=== PATIENT | female | born 1980 | race American Indian/Alaskan Native ===

== ENCOUNTER 2017-05-23 20:58 | Emergency (ER) | payer BC ==
[2017-05-23 21:04] VITALS: BP 145/82; PULSE 77; RESP 18; TEMP 97.9; O2SAT 98
--- NOTE | 2017-05-23 21:40 | ED PDOC ---
HPI: Allergic Reaction Time Seen by Provider: 05/23/17 21:04 Chief Complaint (Nursing): Allergic Reaction Chief Complaint (Provider): Allergic Reaction History Per: Patient History/Exam Limitations: no limitations Current Symptoms Are (Timing): Still Present Possible Cause: Medication Associated Symptoms: Skin Rash, Swelling, Itching. denies: Trouble Swallowing, Dizziness, Redness Additional Complaint(s): Elisabet Dempsey, a 36 year old female, presents to the ED to be evaluated. The patient states that around 5:15 she took some tylenol and then around 8:15 she began to develop itching and burning to the bilateral upper extremities. Patient also notes some swelling and tingling sensation to the lips. Denies difficulty breathing, swelling around hand and eyes, numbness/tingling to arms, dizziness. Past Medical History Reviewed: Historical Data, Nursing Documentation, Vital Signs Vital Signs: Last Vital Signs Temp 97.9 F 05/23/17 21:01 Pulse 77 05/23/17 21:01 Resp 18 05/23/17 21:01 BP 145/82 05/23/17 21:01 Pulse Ox 98 05/23/17 21:01 - Medical History PMH: No Chronic Diseases - Surgical History Surgical History: No Surg Hx - Family History Family History: States: Unknown Family Hx - Living Arrangements Living Arrangements: With Family - Social History Current smoker - smoking cessation education provided: No Alcohol: None Drugs: Denies - Home Medications Home Medications: Ambulatory Orders Medication Instructions Recorded Ibuprofen [Motrin] 600 mg PO Q6H PRN #20 tab 07/19/14 DiphenhydrAMINE [Benadryl] 25 mg PO Q6 #15 cap 05/23/17 Famotidine [Pepcid] 20 mg PO BID #16 tab 05/23/17 predniSONE [predniSONE Tab] 20 mg PO BID #8 tab 05/23/17 - Allergies Allergies/Adverse Reactions: Allergies Allergy/AdvReac Type Severity Reaction Status Date / Time metoclopramide [From Reglan] Allergy RASH Verified 05/23/17 21:01 Review of Systems ENT: Positive for: Other (swelling nad tingling around lips) Musculoskeletal: Positive for: Other (burning and itching to b/l upper extremities.) Physical Exam - Reviewed Nursing Documentation Reviewed: Yes Vital Signs Reviewed: Yes - Physical Exam Appears: Positive for: Non-toxic, No Acute Distress Head Exam: Positive for: ATRAUMATIC, NORMAL INSPECTION, NORMOCEPHALIC Skin: Positive for: Normal Color, Warm, Dry. Negative for: Rash Eye Exam: Positive for: Normal appearance, EOMI, PERRL. Negative for: Nystagmus ENT: Positive for: Normal ENT Inspection. Negative for: Nasal Congestion, Tonsillar Exudate Neck: Positive for: Normal, Painless ROM, Supple Cardiovascular/Chest: Positive for: Regular Rate, Rhythm, Chest Non Tender. Negative for: Tachycardia Respiratory: Positive for: Normal Breath Sounds. Negative for: Rales, Rhonchi, Wheezing, Respiratory Distress Gastrointestinal/Abdominal: Positive for: Normal Exam, Bowel Sounds, Soft. Negative for: Tenderness, Guarding, Rebound Back: Positive for: Normal Inspection. Negative for: L CVA Tenderness, R CVA Tenderness Extremity: Positive for: Normal ROM. Negative for: Tenderness, Deformity, Swelling Neurologic/Psych: Positive for: Alert, Oriented, Gait - ECG O2 Sat by Pulse Oximetry: 98 (RA) Pulse Ox Interpretation: Normal - Progress ED Course And Treament: 210 Initial Impression: 36 y/o female presenting with allergic reaction Initial Plan: * Benadryl 25mg PO * Pepcid 20mg PO * predniSONE Tab 60mg PO * Reevaluation 2030 Patient most likely had an allergic reaction to tylenol and and advised to refrain from using tylenol. Scribe Attestation Documented by Laine Lange acting as a scribe for Deirdre Soares PA-C. MD Scribe Attestation All medical record entries made by the Scribe were at my direction and personally dictated by me. I have reviewed the chart and agree that the record accurately reflects my personal performance of the history, physical exam, medical decision making, and the department course for this patient. I have also personally directed, reviewed, and agree with the discharge instructions and disposition. Disposition - Clinical Impression Clinical Impression: Allergic reaction Counseled Patient/Family Regarding: Studies Performed, Diagnosis - Disposition Referrals: [facility] [Provider Group] [facility] [Outside] Disposition: Routine/Home Disposition Time: 21:43 Condition: STABLE Prescriptions: DiphenhydrAMINE [Benadryl] 25 mg PO Q6 #15 cap Famotidine [Pepcid] 20 mg PO BID #16 tab predniSONE [predniSONE Tab] 20 mg PO BID #8 tab Instructions: General Allergic Reaction (ED) Forms: [facility] (New Zealander), [facility] ED School/Work Excuse - POA Present On Arrival: None
== END 2017-05-23 21:40 | disposition home or self-care (01) ==
LOC: H.ER 20:58
DX: T78.40XA Allergy, unspecified, initial encounter (principal); X58.XXXA Exposure to other specified factors, initial encounter

== ENCOUNTER 2017-06-09 20:16 | Emergency (ER) | payer BC ==
[2017-06-09 20:30] VITALS: BP 143/90; PULSE 84; RESP 18; TEMP 98; O2SAT 100
[2017-06-09] MEDS ORDERED: Dexamethasone 4 MG in Sodium Chloride 0.9% 50 ML IV ONE (21:08)
--- NOTE | 2017-06-09 21:13 | ED PDOC ---
HPI: Headache Time Seen by Provider: 06/09/17 20:44 Chief Complaint (Nursing): Headache Chief Complaint (Provider): Headache History Per: Patient History/Exam Limitations: no limitations Onset/Duration Of Symptoms: Hrs (x5) Current Symptoms Are (Timing): Better Additional Complaint(s): Elisabet Dempsey is a 36 year old female with previous medical history of gastritis, who presents to the emergency department with a complaint of constant frontal, pressure headaches status post concussion on right side of head 1 month ago at work associated with facial pain, pressure behind eyes, shortness of breath and near syncope ongoing for 5 hours prior to arrival. Denied vomiting, dizziness, chest pain or palpations. Patient stated she has been taking Motrin once daily for relief and went to urgent care today which recommended neurology consult. Of note, patient had CT scan done with negative findings and reported shortness of breath has since resolved upon arrival to ED. PMD: none provided Past Medical History Reviewed: Historical Data, Nursing Documentation, Vital Signs Vital Signs: Last Vital Signs Temp 98 F 06/09/17 20:27 Pulse 84 06/09/17 20:27 Resp 18 06/09/17 20:27 BP 143/90 06/09/17 20:27 Pulse Ox 100 06/09/17 20:27 - Medical History PMH: Gastritis Denies: Chronic Kidney Disease - Surgical History Surgical History: No Surg Hx - Family History Family History: States: Unknown Family Hx - Social History Current smoker - smoking cessation education provided: No Alcohol: None Drugs: Denies - Home Medications Home Medications: Ambulatory Orders Medication Instructions Recorded Ibuprofen [Motrin] 600 mg PO Q6H PRN #20 tab 07/19/14 DiphenhydrAMINE [Benadryl] 25 mg PO Q6 #15 cap 05/23/17 Famotidine [Pepcid] 20 mg PO BID #16 tab 05/23/17 predniSONE [predniSONE Tab] 20 mg PO BID #8 tab 05/23/17 Acetaminophen/Butalbital/Caf 1 tab PO TID PRN #15 tab 06/10/17 [Fioricet] - Allergies Allergies/Adverse Reactions: Allergies Allergy/AdvReac Type Severity Reaction Status Date / Time metoclopramide [From Reglan] Allergy RASH Verified 06/09/17 21:41 Review of Systems ROS Statement: Except As Marked, All Systems Reviewed And Found Negative Cardiovascular: Negative for: Chest Pain, Palpitations Respiratory: Positive for: Shortness of Breath Gastrointestinal: Negative for: Vomiting Neurological: Positive for: Headache (front; facial pain), Other (near syncope) . Negative for: Dizziness Physical Exam - Reviewed Nursing Documentation Reviewed: Yes Vital Signs Reviewed: Yes - Physical Exam Appears: Positive for: Well, Non-toxic, No Acute Distress Head Exam: Positive for: ATRAUMATIC, NORMAL INSPECTION, NORMOCEPHALIC Skin: Positive for: Normal Color Eye Exam: Positive for: Normal appearance, EOMI, PERRL. Negative for: Nystagmus ENT: Positive for: Normal ENT Inspection Neck: Positive for: Normal Cardiovascular/Chest: Positive for: Regular Rate, Rhythm, Chest Non Tender Respiratory: Positive for: Normal Breath Sounds, Accessory Muscle Use. Negative for: Decreased Breath Sounds, Respiratory Distress Gastrointestinal/Abdominal: Positive for: Normal Exam Extremity: Positive for: Normal ROM Neurologic/Psych: Positive for: Alert (x3), Oriented - Laboratory Results Result Diagrams: 06/09/17 21:48 06/09/17 21:48 - ECG O2 Sat by Pulse Oximetry: 100 (RA) Pulse Ox Interpretation: Normal Medical Decision Making Medical Decision Making: Initial Impression: Headache Differential Diagnosis: Migraine; neuralgia; concussion syndrome Initial Plan: * EKG * BMP * Troponin I * Urine * Urine dipstick * CBC * Decadrib inj 4mg IVP * Toradol 15mg IVP Time: 2154 --EKG: NSR at 77 BMP. Normal QRS. No ST changes. Scribe Attestation: Documented by Bridgette Sierra, acting as a scribe for Scott Levy MD. Provider Scribe Attestation: All medical record entries made by the Scribe were at my direction and personally dictated by me. I have reviewed the chart and agree that the record accurately reflects my personal performance of the history, physical exam, medical decision making, and the department course for this patient. I have also personally directed, reviewed, and agree with the discharge instructions and disposition. Disposition - Clinical Impression Clinical Impression: Headache, Postconcussion syndrome, Dyspnea - Patient ED Disposition Is Patient to be Admitted: No Doctor Will See Patient In The: Office Counseled Patient/Family Regarding: Studies Performed, Diagnosis, Need For Followup - Disposition Referrals: Ajay Jarrett MD [Staff Provider] - Disposition: Routine/Home Disposition Time: 01:10 Condition: GOOD Additional Instructions: Take your medications as instructed. Follow up with neurologist in 2-3 days. Prescriptions: Acetaminophen/Butalbital/Caf [Fioricet] 1 tab PO TID PRN #15 tab PRN Reason: Headache Instructions: Post Concussion Syndrome (ED), General Headache (ED) Forms: [facility] (Palestinian)
[2017-06-09] MEDS ORDERED: Dexamethasone 4 mg/1 ml IVP ONE (21:15)
[2017-06-09] MEDS ORDERED: Dexamethasone 4 mg/1 ml ONE (21:30)
[2017-06-09 21:58] LABS: BASO % 0.5 % (0.0-2.0); EOS % 0.5 % (0.0-4.0); HEMATOCRIT 39.1 % (34.0-47.0); LYMPH # 1.5 K/uL (1.0-4.3); LYMPH % 18.8 % (20.0-40.0); MEAN CORPUSCULAR HEMOGLOBIN 25.9 pg (27.0-31.0); MEAN CORPUSCULAR HGB CONC 31.6 g/dL (33.0-37.0); MEAN PLATELET VOLUME 9.1 fl (7.2-11.7); MONO # 0.6 K/uL (0.0-0.8); MONO % 7.9 % (0.0-10.0); NEUT # 5.7 K/uL (1.8-7.0); NEUT % 72.3 % (50.0-75.0); RED CELL DISTRIBUTION WIDTH 14.9 % (11.5-14.5); WHITE BLOOD COUNT 7.9 K/uL (4.8-10.8)
[2017-06-09 22:05] LABS: BLOOD UREA NITROGEN 16 mg/dl (7-17); CALCIUM 9.9 mg/dL (8.4-10.2); CARBON DIOXIDE 23 mmol/L (22-30); CHLORIDE 106 mmol/L (98-107); GFR AFRICAN-AMERICAN > 60; GLUCOSE,RANDOM 98 mg/dL (65-105); POTASSIUM 4.2 MMOL/L (3.6-5.0); SODIUM 140 mmol/l (132-148)
[2017-06-09] MEDS ORDERED: Oxycodone/Acetaminophen 5/325 mg Tab PO ONE (23:44)
[2017-06-09] MEDS ORDERED: Oxycodone/Acetaminophen 5/325 mg Tab ONE (23:47)
--- NOTE | 2017-06-10 07:31 | CARD ---
APPROVED REPORT EKG Measurement Heart [id number] <Conclusion> Normal sinus rhythm with sinus arrhythmia Normal ECG
== END 2017-06-10 01:48 | disposition home or self-care (01) ==
LOC: H.ER 20:16
DX: F07.81 Postconcussional syndrome (principal)
CPT/HCPCS: 80048; 81025; 84484; 85025; 93005; 96374; 96375; 99283; J1100; J1885

== ENCOUNTER 2018-09-24 20:46 | Emergency (ER) | payer BC ==
[2018-09-24 21:10] VITALS: RESP 18; TEMP 98.7
[2018-09-24 22:56] VITALS: O2SAT 100
--- NOTE | 2018-09-24 23:10 | ED PDOC ---
HPI: Abdomen Time Seen by Provider: 09/24/18 22:15 Chief Complaint (Nursing): Female Genitourinary Chief Complaint (Provider): Abdominal Pain History Per: Patient History/Exam Limitations: no limitations Onset/Duration Of Symptoms: Mins Current Symptoms Are (Timing): Still Present Additional Complaint(s): 37 y/o female with a PMHx of with one miscarriage presents to the ED for evaluation of abdominal pain, onset prior to arrival. Patient reports she is 10 weeks . Patient states she was getting out of the car and turned around when she accidentally walked into a bike rack, hitting her abdomen. Patient reports of experiencing pressure-like pain at her pelvis radiating down since. Patent states has been otherwise uneventful. Patient denies vaginal discharge, vaginal bleeding, urinary symptoms, excessive vomiting and history of UTIs throughout . PMD: Umu Bowers : 2 Para: 0 Miscarriage: 1 Past Medical History Reviewed: Historical Data, Nursing Documentation, Vital Signs Vital Signs: Last Vital Signs Temp 98.7 F 09/24/18 21:08 Pulse 76 09/24/18 21:08 Resp 18 09/24/18 21:08 BP 119/72 09/24/18 21:08 Pulse Ox 100 09/24/18 21:08 - Medical History PMH: Gastritis Denies: Chronic Kidney Disease - Surgical History Surgical History: No Surg Hx - Family History Family History: States: Other Other Family History: Cancer - Social History Current smoker - smoking cessation education provided: No - Immunization History Hx Tetanus Toxoid Vaccination: No Hx Influenza Vaccination: No Hx Pneumococcal Vaccination: No - Home Medications Home Medications: Ambulatory Orders Medication Instructions Recorded Ibuprofen [Motrin] 600 mg PO Q6H PRN #20 tab 07/19/14 DiphenhydrAMINE [Benadryl] 25 mg PO Q6 #15 cap 05/23/17 Famotidine [Pepcid] 20 mg PO BID #16 tab 05/23/17 predniSONE [predniSONE Tab] 20 mg PO BID #8 tab 05/23/17 Acetaminophen/Butalbital/Caf 1 tab PO TID PRN #15 tab 06/10/17 [Fioricet] - Allergies Allergies/Adverse Reactions: Allergies Allergy/AdvReac Type Severity Reaction Status Date / Time metoclopramide [From Reglan] Allergy RASH Verified 09/24/18 21:08 Review of Systems ROS Statement: Except As Marked, All Systems Reviewed And Found Negative (as per HPI) Gastrointestinal: Positive for: Abdominal Pain Genitourinary Female: Positive for: Pelvic Pain. Negative for: Dysuria, Frequency, Hematuria, Vaginal Discharge, Vaginal Bleeding Physical Exam - Reviewed Nursing Documentation Reviewed: Yes Vital Signs Reviewed: Yes - Physical Exam Appears: Positive for: No Acute Distress Gastrointestinal/Abdominal: Positive for: Tenderness (Suprapubic tenderness to palpation. (-) McBurney's Point Tenderness, (-) Elizabeth's Sign ). Negative for: Mass, Guarding, Rebound - ECG O2 Sat by Pulse Oximetry: 100 (RA) Pulse Ox Interpretation: Normal Medical Decision Making Medical Decision Making: Time: 2219 Impression: Traumatic abdominal pain in early Plan: -- ED Urine -- ED Urine Dipstick -- OB Transvaginal US Time: 2357 US RESULTS FINDINGS: GESTATION: A single living IUP identified estimated to be 10 weeks and 3 days in age +/- 5 days. The KUMAR is 04[birth year]19/2019. cardiac activity was documented beating at a rate of 165 BPM. UTERUS: Unremarkable. No myometrial mass. CERVIX: Closed. Unremarkable. 4.7 cm in longitudinal length. OVARIES: The left ovary is normal in size and position. Good perfusion was demonstrated. The right ovary was not identified. FREE FLUID: No free fluid. IMPRESSION: Single living intrauterine . No acute abnormality. Electronically signed on Sep 24, 2018 11:58:20 PM EST by: William Crandall M.D., ARMAAN Certified By [facility] Fellowship Trained MRI and CT Specialist Scribe Attestation: Documented by Roshni Chadwick, acting as a scribe for Glory Garcia MD. Provider Scribe Attestation: All medical record entries made by the Scribe were at my direction and personally dictated by me. I have reviewed the chart and agree that the record accurately reflects my personal performance of the history, physical exam, medical decision making, and the department course for this patient. I have also personally directed, reviewed, and agree with the discharge instructions and disposition. Disposition - Disposition Forms: [employer] (Thai)
[2018-09-25 00:13] VITALS: BP 108/63; PULSE 70
--- NOTE | 2018-09-25 11:56 | US ---
Date of service: 09/24/2018 Indication: Pelvic pain s/p trauma 10 wks Comparison: None available Technique: Transabdominal pelvic ultrasound. Findings: The uterus measures approximately 9.3 x 6.3 x 7.8 cm. Anteverted. Cervix length measures approximately 4.7 cm and appears closed. There is a single intrauterine fetus present. 5 mm yolk sac. The gestational sac measures 4.6 cm and is compatible with a gestational age of 10 weeks 1 day. The crown-rump length measures 3.7 cm and is compatible with a gestational age of 10 weeks 4 days. There is heart motion which measured 164 BPM. The right ovary is not visualized. The left ovary measures 2.11.5 x 2.4 cm. Blood flow is demonstrated to the right ovary. Impression: Live single intrauterine with estimated gestational age 10 weeks 1 day by gestational sac calculation and 10 weeks 4 days by crown-rump length calculation. heart rate 164 bpm. Advise an anomaly screen at 16-18 weeks gestational age. Preliminary impression was provided by [employer].
== END 2018-09-25 00:07 | disposition home or self-care (01) ==
LOC: H.ER 20:46
DX: O26.891 Other specified pregnancy related conditions, first trimester (principal); R10.2 Pelvic and perineal pain; Z3A.10 10 weeks gestation of pregnancy

== ENCOUNTER 2018-12-23 04:16 | Emergency (ER) | payer BC ==
[2018-12-23 05:17] VITALS: BMI 23.8
[2018-12-23] MEDS: Lactated Ringer's 1,000 ML IV SCH (05:45)
[2018-12-23 12:21] VITALS: BP 104/64; PULSE 87; RESP 18; TEMP 98.1; O2SAT 100
== END 2018-12-23 07:40 | disposition home or self-care (01) ==
LOC: H.EROB2 04:16
DX: O26.92 Pregnancy related conditions, unspecified, second trimester (principal); R19.7 Diarrhea, unspecified; Z3A.23 23 weeks gestation of pregnancy
CPT/HCPCS: 96360; 99283; J7120